=== PATIENT | female | born 1960 | race Caucasian/White ===

== ENCOUNTER 2022-10-25 13:11 | Outpatient (AMB) | payer OTHER, SELFPAY ==
--- NOTE | 2022-10-25 13:16 | A.OFFVIS_ITS ---
Intake Vital Signs 10/25/22 13:23 Height 5 ft 6 in Weight 183 lb 13.848 oz BMI 29.7 BP 130/74 Blood Pressure Location Rt brachial Position Sitting Pulse 71 Pulse Source Pulse Oximeter Pulse Oximetry (%) 98 Intake Visit Reasons: Inflammatory Arthritis Intake Note: New pt presents today for inflammatory arthritis consult. Residential Support Worker Required: No Accompanied by: Self / Same As Patient Allergies No Known Allergies Allergy (Verified 10/25/22 13:26) Medication List - Last Reconciled 10/25/22 by Janey Odonnell MD gabapentin 800 mg PO BEDTIME methotrexate sodium 10 mg PO QWEEK HPI HPI Comments History of Present Illness Details This is a 62-year-old female with a past medical history of psoriatic arthritis who presents as a new patient. Her previous sales agent financial report service left the practice. Patient states that she was diagnosed with psoriasis and psoriatic arthritis around 2012. She was evaluated by Dr. Liz. It usually affected her left knee. Occasionally the thumbs. Patient had been on methotrexate since diagnosis. She was initially taking 8 tabs a week but the dose was reduced to 4 tabs a week for years now. She does not remember taking any other DMARDs for psoriatic arthritis. She states that methotrexate has worked very well for the most part, she got intermittent flares where she had flare-ups affecting her left knee, she had her knee drained once. Today patient is complaining of intermittent pain in her right thumb, worse with use. She also has left lower back pain, worse with lying down, worse after sitting down for long periods of time. Does not shoot down her legs. Denies having any psoriasis rashes recently. She states that she had a colonoscopy years ago and it was unremarkable. Denies any history suggestive of uveitis. She has history of macular degeneration and gets injections in her eyes for the last 5 years. [facility] Medical History GERD (gastroesophageal reflux disease) Inflammatory polyarthropathy Lymphedema Myopic macular degeneration Psoriasis with arthropathy Surgical History History of endometrial biopsy Hx of cholecystectomy Hx of tubal ligation Family History Mother Rheumatoid arthritis Father No problems noted. Social History Household Members: Spouse Alcohol intake: current Alcohol intake frequency: holidays/special occasions only Patient Tobacco Use Status: Never used Tobacco Female Reproductive History Menstrual Total pregnancies: 3 Number of Living Children: 3 Review of Systems [facility] [place] Reports arthralgias and Reports stiffness Physical Exam Vital Signs: Last Vital Signs Pulse 71 10/25/22 13:23 BP 130/74 10/25/22 13:23 Pulse Ox 98 10/25/22 13:23 BMI result Body Mass Index 29.7 Const General: cooperative, healthy appearing and comfortable Nutritional Appearance: overweight Orientation/consciousness: patient oriented x3 Limitations: no limitations HEENT Head: Yes normocephalic and Yes atraumatic Mouth: moist mucous membranes Resp Effort & Inspection: normal respiratory effort and able to speak in complete sentences Auscultation: clear to auscultation bilaterally Cardio Rate: regular rate Rhythm: regular rhythm Skin General skin exam: no rashes or lesions noted Neuro General: patient oriented x3 Extrem Other: Squaring of right 1st CMC joint. Minimal discomfort of 1st CMC grind test Few Heberden's node right hand minimally tender Patient can not touch her toes with her knees straight without pain RLE lymphedema Left lower back tenderness to palpation When doing KOFFI test or the right lower extremity patient gets some left lower back pain. Equivocal test Assessment & Plan Assessment & Plan (1) Psoriasis with arthropathy: Comment: around 2012 MTX since 2012 effective Code(s): L40.50 - Arthropathic psoriasis, unspecified Plan: This is a 62-year-old female with a past medical history of psoriatic arthritis who presents as a new patient. Her previous sales agent financial report service left the practice. She is on methotrexate 10 mg weekly Patient is doing well today with no active synovitis. Recently she has been having left lower back pain, she has an equivocal KOFFI test. Will check SI joint x-ray to evaluate for sacroiliitis Continue methotrexate 10 mg weekly and folic acid 1 mg daily. Labs today Follow-up in 6 months or sooner if needed (2) Primary osteoarthritis, right hand: Code(s): M19.041 - Primary osteoarthritis, right hand Plan: Patient's right thumb achiness and stiffness is likely due to hand osteoarthritis. Advised patient to use [id number] Voltaren gel Plan I spent 46 minutes reviewing patient's chart, evaluating patient, ordering diagnostic workup, counseling patient and documenting in the chart Orders: Orders Comprehensive Met. Panel Today L40.50 - Arthropathic psoriasis, unspecified C Reactive Protein Today L40.50 - Arthropathic psoriasis, unspecified Complete Blood Count Auto Diff Today L40.50 - Arthropathic psoriasis, unspecified Erythrocyte Sedimentation Rate Today L40.50 - Arthropathic psoriasis, unspecified Hepatitis A,B,C Profile Today Z11.59 - Encounter for screening for other viral diseases T Spot TB Today Z11.7 - Encounter for testing for latent tuberculosis infection XR sacroiliac joint min 3V Today L40.50 - Arthropathic psoriasis, unspecified Medications: New methotrexate sodium 10 mg (4 x 2.5 mg) PO QWEEK 48 tabs 1RF folic acid 1 mg PO DAILY 90 tabs 1RF Coding Level of Care Code New Pt Level 4 (45536) Diagnoses Psoriasis with arthropathy L40.50 Primary osteoarthritis, right hand M19.041
[2022-10-25 13:23] VITALS: BP 130/74; PULSE 71; O2SAT 98; BMI 29.7
== END 2022-10-25 13:52 | disposition home or self-care (01) ==
PROVIDERS: PCP Family Medicine; Visit Provider Student in an Organized Health Care Education/Training Program
DX: L40.50 Arthropathic psoriasis, unspecified (principal); M19.041 Primary osteoarthritis, right hand
CPT/HCPCS: 99204

== ENCOUNTER → 2022-10-25 13:11 | Outpatient (BNVA) | payer SELFPAY | PROVIDERS: Visit Provider Student in an Organized Health Care Education/Training Program ==

== ENCOUNTER 2023-06-04 10:03 | Outpatient (AMB) | payer OTHER, SELFPAY ==
[2023-06-04 10:08] VITALS: BP 122/70; PULSE 84; O2SAT 98; BMI 30.1
--- NOTE | 2023-06-04 10:08 | A.OFFVIS_ITS ---
Intake Vital Signs 06/04/23 10:08 Height 5 ft 6 in Weight 186 lb 4.65 oz BMI 30.1 BP 122/70 Blood Pressure Location Rt brachial Position Sitting Pulse 84 Pulse Source Pulse Oximeter Pulse Oximetry (%) 98 Oxygen Delivery Method Room Air Intake Visit Reasons: PsA/LVM Intake Note: Patient last seen 10/25/22 presents today for follow up and test results. Pt did not complete labs, she has appt today [facility]. 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 She states that she is doing fairly well overall. Her main complaint is left thumb pain and stiffness. The symptoms are almost constant, worse with doing activ ities and when holding a book or an iPad. She has been using a thumb splint which seems to help. Rarely she would use Tylenol at night. She denies any swollen joints. Psoriasis has been well controlled. Feeling well overall Initial history: This is a 62-year-old female with a past medical history of psoriatic arthritis who presents as a new patient. 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 Patient states that she was diagnosed with psoriasis and psoriatic arthritis around 2012. She was evaluated by Dr. Liz. It usually affected her left knee. Occasionally the thumbs. Patient had been on methotrexate since diagnosis. She was initially taking 8 tabs a week but the dose was reduced to 4 tabs a week for years now. She does not remember taking any other DMARDs for psoriatic arthritis. She states that methotrexate has worked very well for the most part, she got intermittent flares where she had flare-ups affecting her left knee, she had her knee drained once. Today patient is complaining of intermittent pain in her right thumb, worse with use. She also has left lower back pain, worse with lying down, worse after sitting down for long periods of time. Does not shoot down her legs. Denies having any psoriasis rashes recently. She states that she had a colonoscopy years ago and it was unremarkable. Denies any history suggestive of uveitis. She has history of macular degeneration and gets injections in her eyes for the last 5 years. [facility] Medical History Lymphedema Psoriasis with arthropathy Myopic macular degeneration GERD (gastroesophageal reflux disease) Inflammatory polyarthropathy Surgical History Hx of cholecystectomy Hx of tubal ligation History of endometrial biopsy Family History Mother Rheumatoid arthritis Father No problems noted. Social History Household Members: Spouse Alcohol intake: current Alcohol intake frequency: holidays/special occasions only Patient Tobacco Use Status: Never used Tobacco Review of Systems [facility] [place] Reports arthralgias and Reports stiffness Skin/Breast Denies rash Physical Exam Vital Signs: Last Vital Signs Pulse 84 06/04/23 10:08 BP 122/70 06/04/23 10:08 Pulse Ox 98 06/04/23 10:08 Oxygen Delivery Method Room Air 06/04/23 10:08 BMI result Body Mass Index 30.1 Const General: cooperative, healthy appearing and comfortable Nutritional Appearance: overweight Orientation/consciousness: patient oriented x3 Limitations: no limitations HEENT Head: Yes normocephalic and Yes atraumatic Resp Effort & Inspection: normal respiratory effort and able to speak in complete sentences Skin General skin exam: no rashes or lesions noted Neuro General: patient oriented x3 Extrem Other: Squaring of right 1st CMC joint. No tenderness, negative Yasir's test on the left Few Heberden's node right hand Left 1st CMC joint tenderness Negative Yasir's test No active synovitis No nail pitting Results Reviewed Results Reviewed: Bilateral SI joint x-rays 11/2022? Findings:? No fracture of the sacrum or coccyx is evident.? The sacroiliac joints are unremarkable.?? No other bony or soft tissue abnormalities are seen.?? Impression:? No evidence of sacroiliitis? Bilateral wrist x-rays 11/2022? Findings Right:? No fracture or subluxation.? There is mild periarticular osteopenia.? There is mild degenerative change in the right scaphotrapezial joint Left no fracture or subluxation.? There is mild periarticular osteopenia.? There are mild degenerative changes 1st CMC and scaphotrapezial joint.? No erosions? Impression mild periarticular osteopenia.? Mild DJD? Bilateral hand x-rays 11/2022? Findings Right no fracture or subluxation.? There are small erosions right 1st metacarpal head.? There are degenerative changes of the distal interphalangeal joints of the right 2nd digit and to a lesser extent the remaining distal interphalangeal joints.? There is mild narrowing of the right scaphotrapezial joint.? There is mild periarticular osteopenia? The soft tissues are unremarkable? Left:? No fracture or subluxation.? Mild degenerative change at 1st carpometacarpal joint and scaphotrapezial joints.? Mild degenerative changes are seen in the distal interphalangeal joints.? No erosion.? There is mild periarticular osteopenia.?? The soft tissues are unremarkable.?? Impression:? Mild periarticular osteopenia.? Small erosions right 1st metacarpal head.? Mild degenerative changes interphalangeal joints.? Mild narrowing of the scaphotrapezial joints and left carpometacarpal joint Assessment & Plan Assessment & Plan (1) Psoriasis with arthropathy: Comment: around 2012 MTX since 2012 effective Code(s): L40.50 - Arthropathic psoriasis, unspecified Plan: This is a 62-year-old female with psoriatic arthritis who presents for follow- up. Doing well overall on methotrexate 10 mg weekly plus folic acid 1 mg daily. No active synovitis on exam Patient's symptoms are likely due to degenerative arthritis Continue current meds as prescribed Labs before next visit in 6 months (2) Osteoarthritis of hands, bilateral: Code(s): M19.041 - Primary osteoarthritis, right hand; M19.042 - Primary osteoarthritis, left hand Qualifiers: Osteoarthritis type: primary Qualified Code(s): M19.041 - Primary osteoarthritis, right hand; M19.042 - Primary osteoarthritis, left hand Plan: Most bothersome today is the left 1st carpometacarpal joint. Discussed management of hand osteoarthritis including using thumb splints, Voltaren gel, can use Tylenol. Can use systemic NSAIDs sparingly. Referred patient to occupational therapy. Advised patient that a steroid injection by hand surgeon can also be helpful. 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 Panel 6 Months Z79.631 - ferry terminal supervisor (current) use of antimetabolite agent Erythrocyte Sedimentation Rate 6 Months Z79.631 - nursing home (current) use of antimetabolite agent C Reactive Protein 6 Months Z79.631 - nursing home (current) use of antimetabolite agent Coding Level of Care Code Est Pt Level 4 (22877) Diagnoses Psoriasis with arthropathy L40.50 Primary osteoarthritis of both hands M19.041; M19.042 Osteoarthritis type: primary
== END 2023-06-04 10:25 | disposition home or self-care (01) ==
PROVIDERS: PCP Family Medicine; Visit Provider Student in an Organized Health Care Education/Training Program
DX: L40.50 Arthropathic psoriasis, unspecified (principal); M19.041 Primary osteoarthritis, right hand; M19.042 Primary osteoarthritis, left hand
CPT/HCPCS: 99214

== ENCOUNTER → 2023-06-04 10:03 | Outpatient (BNVA) | payer OTHER, SELFPAY | PROVIDERS: PCP Family Medicine; Visit Provider Student in an Organized Health Care Education/Training Program ==

== ENCOUNTER 2023-12-05 09:53 | Outpatient (AMB) | payer OTHER, SELFPAY ==
--- NOTE | 2023-12-05 09:54 | MHC.OFFVIS ---
Vital Signs 12/05/23 09:57 Height 5 ft 6 in Weight 175 lb 11.335 oz BMI 28.4 BP 120/72 Blood Pressure Location Rt brachial Position Sitting Pulse 84 Pulse Source Pulse Oximeter Pulse Oximetry (%) 99 Oxygen Delivery Method Room Air Intake Visit Reasons: PsA Intake Note: Patient presents for PsA. Allergies No Known Allergies Allergy (Verified 12/05/23 09:56) Medication List - Last Reconciled 12/05/23 by Janey Odonnell MD folic acid 1 mg PO DAILY gabapentin 800 mg PO BEDTIME methotrexate sodium 10 mg (4 x 2.5 mg) PO QWEEK HPI Comments Details: 63-year-old female with psoriatic arthritis returns for follow-up. She states that she has been having triggering of her right ring finger for the last 2 weeks or so. It happens multiple times a day. No significant pain or swelling. She has also noticed some left knee pain. This started approximately 3 weeks ago. She attributes it to a stretching program that she has been doing. She has been doing relatively well overall otherwise. Initial history: This is a 62-year-old female with a past medical history of psoriatic arthritis who presents as a new patient. Her previous hospice/home health aide left the practice. Patient states that she was diagnosed with psoriasis and psoriatic arthritis around 2012. She was evaluated by Dr. Liz. It usually affected her left knee. Occasionally the thumbs. Patient had been on methotrexate since diagnosis. She was initially taking 8 tabs a week but the dose was reduced to 4 tabs a week for years now. She does not remember taking any other DMARDs for psoriatic arthritis. She states that methotrexate has worked very well for the most part, she got intermittent flares where she had flare-ups affecting her left knee, she had her knee drained once. Today patient is complaining of intermittent pain in her right thumb, worse with use. She also has left lower back pain, worse with lying down, worse after sitting down for long periods of time. Does not shoot down her legs. Denies having any psoriasis rashes recently. She states that she had a colonoscopy years ago and it was unremarkable. Denies any history suggestive of uveitis. She has history of macular degeneration and gets injections in her eyes for the last 5 years. [facility] Medical History Lymphedema Psoriasis with arthropathy Myopic macular degeneration GERD (gastroesophageal reflux disease) Inflammatory polyarthropathy Surgical History Hx of cholecystectomy Hx of tubal ligation History of endometrial biopsy Family History Mother Rheumatoid arthritis Father No problems noted. Social History Household Members: Spouse Alcohol intake: current Alcohol intake frequency: holidays/special occasions only Patient Tobacco Use Status: Never used Tobacco Female Reproductive History Menstrual Total pregnancies: 3 Number of Living Children: 3 Review of Systems [facility] Reports arthralgias and Reports stiffness Skin/Breast Denies rash Physical Exam Vital Signs: Last Vital Signs Pulse 84 12/05/23 09:57 BP 120/72 12/05/23 09:57 Pulse Ox 99 12/05/23 09:57 Oxygen Delivery Method Room Air 12/05/23 09:57 BMI result Body Mass Index 28.4 Const General: cooperative, healthy appearing and comfortable Nutritional Appearance: overweight Orientation/consciousness: patient oriented x3 Limitations: no limitations HEENT Head: Yes normocephalic and Yes atraumatic Resp Effort & Inspection: normal respiratory effort and able to speak in complete sentences Skin General skin exam: no rashes or lesions noted Neuro General: patient oriented x3 Extrem Other: Squaring of right 1st CMC joint. No tenderness, negative Yasir's test on the right Few Heberden's node right hand Negative Yasir's test on the left No active synovitis Right 4th flexor tendon tenderness and right 5th finger triggering Some tenderness at the inferior medial aspect of left knee anteriorly. No swelling, no knee pain with full flexion-extension Right leg lymphedema No nail pitting Results Reviewed Results Reviewed: Bilateral SI joint x-rays 11/2022? Findings:? No fracture of the sacrum or coccyx is evident.? The sacroiliac joints are unremarkable.?? No other bony or soft tissue abnormalities are seen.?? Impression:? No evidence of sacroiliitis? Bilateral wrist x-rays 11/2022? Findings Right:? No fracture or subluxation.? There is mild periarticular osteopenia.? There is mild degenerative change in the right scaphotrapezial joint Left no fracture or subluxation.? There is mild periarticular osteopenia.? There are mild degenerative changes 1st CMC and scaphotrapezial joint.? No erosions? Impression mild periarticular osteopenia.? Mild DJD? Bilateral hand x-rays 11/2022? Findings Right no fracture or subluxation.? There are small erosions right 1st metacarpal head.? There are degenerative changes of the distal interphalangeal joints of the right 2nd digit and to a lesser extent the remaining distal interphalangeal joints.? There is mild narrowing of the right scaphotrapezial joint.? There is mild periarticular osteopenia? The soft tissues are unremarkable? Left:? No fracture or subluxation.? Mild degenerative change at 1st carpometacarpal joint and scaphotrapezial joints.? Mild degenerative changes are seen in the distal interphalangeal joints.? No erosion.? There is mild periarticular osteopenia.?? The soft tissues are unremarkable.?? Impression:? Mild periarticular osteopenia.? Small erosions right 1st metacarpal head.? Mild degenerative changes interphalangeal joints.? Mild narrowing of the scaphotrapezial joints and left carpometacarpal joint Assessment & Plan Assessment & Plan (1) Psoriasis with arthropathy: Comment: around 2012 MTX since 2012 effective Code(s): L40.50 - Arthropathic psoriasis, unspecified Category: Medical Plan: This is a 63-year-old female with psoriatic arthritis who presents for follow-up. Doing well overall on methotrexate 10 mg weekly plus folic acid 1 mg daily. No active synovitis on exam Continue current meds as prescribed Labs before next visit in 6 months (2) Elevated serum creatinine: Code(s): R79.89 - Other specified abnormal findings of blood chemistry Category: Medical Plan: Mild bump in serum creatinine. Advised patient to repeat blood work in one-month (3) Trigger finger, right ring finger: Code(s): M65.341 - Trigger finger, right ring finger Category: Medical Plan: Discussed the nature of trigger finger. Discussed conservative options, such as wearing a Band-Aid on the PIP at night, consider wearing OTC ring splints. Or referral to OT for a custom ring splint. No improvement in a few weeks, advised patient to call the office and we can bring her in for an injection (4) Immunization counseling: Code(s): Z71.85 - Encounter for immunization safety counseling Category: Medical Plan: Advised patient to get both flu vaccine and COVID booster. 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 Panel 6 Months L40.50 - Arthropathic psoriasis, unspecified, Z79.631 - terminal operations manager (current) use of antimetabolite agent C Reactive Protein 6 Months L40.50 - Arthropathic psoriasis, unspecified, Z79.631 - [facility] (current) use of antimetabolite agent Comprehensive Met. 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
[2023-12-05 09:57] VITALS: BP 120/72; PULSE 84; O2SAT 99; BMI 28.4
== END 2023-12-05 10:23 | disposition home or self-care (01) ==
PROVIDERS: PCP Family Medicine; Visit Provider Student in an Organized Health Care Education/Training Program
DX: L40.50 Arthropathic psoriasis, unspecified (principal); R79.89 Other specified abnormal findings of blood chemistry; M65.341 Trigger finger, right ring finger; Z71.85 Encounter for immunization safety counseling
CPT/HCPCS: 99214; G2211

== ENCOUNTER → 2023-12-05 09:53 | Outpatient (BNVA) | payer OTHER, SELFPAY | PROVIDERS: PCP Family Medicine; Visit Provider Student in an Organized Health Care Education/Training Program ==

== ENCOUNTER 2024-11-03 12:18 | Outpatient (AMB) | payer OTHER, SELFPAY ==
--- NOTE | 2024-11-03 12:20 | MHC.OFFVIS ---
Vital Signs 11/03/24 12:33 Height 5 ft 6 in Weight 185 lb 13.595 oz BMI 30.0 BP 120/64 Blood Pressure Location Lt brachial Position Sitting Pulse 75 Pulse Source Pulse Oximeter Pulse Oximetry (%) 98 Oxygen Delivery Method Room Air Intake Visit Reasons: PsA Intake Note: Patient presents for follow up on psoriasis with arthropathy and lab results. She was last seen 12/05/[address] Odonnell Allergies No Known Allergies Allergy (Verified 11/03/24 12:36) Medication List - Last Reconciled 11/03/24 by Paige Ram MD folic acid 1 mg PO DAILY gabapentin 800 mg PO BEDTIME methotrexate sodium 10 mg (4 x 2.5 mg) PO QWEEK HPI Comments Details: Patient is a 64 y.o female with polyarticular OA (hand and knee OA) and PsO c/b PsA here today for follow up Interval History: Patient last seen 12/05/[address] Odonnell - On Methotrexate 10mg weekly and folic acid - c/o of right ring finger triggering - Recommended splinting - No active disease, no changes to medicatons Today - On Methotrexate 10mg weekly and folic acid - Splinting improved her trigger finger - Has been having knee pain and right leg pain (has known lymphadedema on the right) - Went to PT - Improved leg pain now with all the conservative measures including a right knee 10/2024 - Left ankle pain, currently following up with ortho for this as well - Has stiffness in her right 3rd and 4th PIP lasting an hour - No PsO Rheumatologic History: Around 2012 MTX since 2012 effective Initial history: This is a 62-year-old female with a past medical history of psoriatic arthritis who presents as a new patient. Her previous machine helper left the practice. Patient states that she was diagnosed with psoriasis and psoriatic arthritis around 2012. She was evaluated by Dr. Liz. It usually affected her left knee. Occasionally the thumbs. Patient had been on methotrexate since diagnosis. She was initially taking 8 tabs a week but the dose was reduced to 4 tabs a week for years now. She does not remember taking any other DMARDs for psoriatic arthritis. She states that methotrexate has worked very well for the most part, she got intermittent flares where she had flare-ups affecting her left knee, she had her knee drained once. Today patient is complaining of intermittent pain in her right thumb, worse with use. She also has left lower back pain, worse with lying down, worse after sitting down for long periods of time. Does not shoot down her legs. Denies having any psoriasis rashes recently. She states that she had a colonoscopy years ago and it was unremarkable. Denies any history suggestive of uveitis. She has history of macular degeneration and gets injections in her eyes for the last 5 years. Current Rheumatology Medication(s): Methotrexate 10mg weekly Folic acid 1mg daily PFS Medical History Lymphedema Psoriasis with arthropathy Myopic macular degeneration GERD (gastroesophageal reflux disease) Inflammatory polyarthropathy Surgical History Hx of cholecystectomy Hx of tubal ligation History of endometrial biopsy Family History Mother Rheumatoid arthritis Father No problems noted. Social History Household Members: Spouse Alcohol intake: current Alcohol intake frequency: holidays/special occasions only Patient Tobacco Use Status: Never used Tobacco Review of Systems Const Details: Review of Systems Constitutional: Denies fever, chills, weight loss ENT: Denies vision changes, eye pain or eye redness, dental caries, dry mouth GI: Denies nausea, vomiting, diarrhea, abdominal pain, change in BM Pulm: Denies SOB, COBB, hemoptysis, wheezing Cards: Denies chest pain, palpitations Skin: Denies Raynaud's, rash, nail changes, photosensitivity, STUDIO OPERATION ENGINEER: Denies headaches, weakness, paresthesias, recurrent falls MSK: as per HPI All other systems reviewed and are unremarkable except noted above Physical Exam Exam Exam: Vital signs reviewed Physical Examination CONSTITUITIONAL Patient alert and cooperative. Well appearing and in no apparent painful distress MSK Hands Right Hand: Able to make a fist. No swelling but mild TTP of the right 3rd PIP. No swelling or tenderness to palpation of the other MCPs, PIPs or DIPs. Squarring of the 1st CMC joint Left Hand: Able to make a fist. No swelling or tenderness to palpation of the MCPs, PIPs or DIPs. Herbedens nodes noted bilaterally Wrists Right Wrist: Full ROM to flexion and extension. No swelling or TTP Left Wrist: Full ROM to flexion and extension. No swelling or TTP Elbows Right Elbow: Full ROM. No swelling or TTP. No TTP of the medial epicondyle. No TTP of the lateral epicondyle Left Elbow: Full ROM. No swelling or TTP. No TTP of the medial epicondyle. No TTP of the lateral epicondyle Shoulders Right shoulder: Full ROM. No swelling noted. No TTP of the AC joint. No TTP of the subacromial bursa. No TTP of the posterior shoulder Left shoulder: Full ROM. No swelling noted. No TTP of the AC joint. No TTP of the subacromial bursa. No TTP of the posterior shoulder Lower extemity Right lower extremity with compression stocking. Not able to full assess swelling Knees Right knee: No TTP of the knee joint line. No TTP of pes anserine bursa Left knee: No swelling noted. No TTP of the knee joint line. No TTP of pes anserine bursa. Ankles Right ankle: Good ankle dorsiflexion and plantar flexion. unable to assess swelling due to compression stocking. No TTP of the ankle joint Left ankle: Good ankle dorsiflexion and plantar flexion. Mild pitting edema. No TTP of the ankle joint. Patient pointed to area inferior to the medial epicondyle as the source of the pain but no swelling noted or TTP of the area Feet Right foot: Negative squeeze test Left foot: Negative squeeze test Tender points? No tenderness to palpation of the bilateral trapezius, supraspinatus, anterior costochondral junctions, bilateral suboccipital muscle insertions SKIN No rashes Results Reviewed Results Reviewed: 10/30/24 VMG WBC 5.98 Hb 14.3 Plt 233 BUN 19 Cr 1.1 eGFR 56 AST 19 ALT 36 ESR 4 CRP 6.9 Assessment & Plan Assessment & Plan (1) Psoriasis with arthropathy: Comment: around 2012 MTX since 2012 effective Code(s): L40.50 - Arthropathic psoriasis, unspecified Category: Medical Plan: #PsO/PsA Patient is a 64-year-old female with psoriasis complicated by psoriatic arthritis here today for follow up Overall I do not see any signs of active psoriatic arthritis however she is complaining of tenderness to palpation of the right 3rd PIP and prolonged morning stiffness of the right 3rd and 4th PIP. This could be some mild psoriatic arthritic activity. We will try increasing her methotrexate dose to see if this helps with this Plan - Increase Mtx to 15mg wekly - Continue folic acid 1 mg daily - Check CMP in 3 months - RTC 6 months - Labs before visit: CBC, CMP, ESR, CRP (2) Left ankle pain: Code(s): M25.572 - Pain in left ankle and joints of left foot Qualifiers: Chronicity: chronic Qualified Code(s): M25.572 - Pain in left ankle and joints of left foot; G89.29 - Other chronic pain Plan: #Left ankle pain Patient complaining of the left medial ankle pain. 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 Limit alcohol and avoid Bactrim ? Monitoring: CBC, BMP, LFTs every 3-4 months and hepatitis serologies as needed Plan I spent 30 minutes reviewing the record and labs, taking a history, examining the patient, discussing the treatment plan, ordering diagnostic work up and documenting in the medical record Orders: Orders Complete Blood Count Auto Diff 6 Months Z79.899 - Other [facility] (current) drug therapy Comprehensive Met. Panel 6 Months Z79.899 - Other adjunct faculty for medical terminology (current) drug therapy C Reactive Protein 6 Months Z79.899 - Other [facility] (current) drug therapy Comprehensive Met. Panel 3 Months Z79.899 - Other [facility] (current) drug therapy Erythrocyte Sedimentation Rate 6 Months Z79.899 - Other adjunct faculty for medical terminology (current) drug therapy Medications: New diclofenac sodium 1% apply to left ankle 4 grams topical QID 150 grams 5RF M19.072 - Primary osteoarthritis, left ankle and foot Changed From methotrexate sodium 10 mg (4 x 2.5 mg) PO QWEEK 48 tabs 3RF L40.50 - Arthropathic psoriasis, unspecified To methotrexate sodium 15 mg (6 x 2.5 mg) PO QWEEK 78 tabs 1RF 90 days L40.50 - Arthropathic psoriasis, unspecified Refilled folic acid 1 mg PO DAILY 90 tabs 1RF Coding Level of Care Code Est Pt Level 4 (20111) Complex EM visit Add On G2211 Diagnoses Psoriasis with arthropathy L40.50 Chronic pain of left ankle M25.572; G89.29 Chronicity: chronic 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
[2024-11-03 12:33] VITALS: BP 120/64; PULSE 75; O2SAT 98
--- OUTSIDE RECORDS SUMMARY | 2024-11-03 13:30 | XMS_ITS | Clinical Summary ---
Author Organization [facility] Address [address] [place] [address] [place] [phone] Phone Care Team Providers Care Manager Pool Name Role Phone Med Kuo NP Primary Care Provider [phone] Allergies No known active allergies Medications methotrexate 2.5 MG Oral tablet Take by mouth every 7 days. Active gabapentin (NEURONTIN) 800 MG tablet Take 800 mg by mouth 3 (three) times a day. Active predniSONE (DELTASONE) 5 MG tablet Take 5 mg by mouth daily with breakfast. Active Encounters Date Type Department Care Team Description 10/13/2024 3:45 PM EDT Office Visit [facility] [address] [place] [address] Med Kuo NP McKeon, Terrance, PT Lymphedema (Primary Dx) 09/21/2024 3:45 PM EDT Office Visit [facility] [address] [place] [address] Med Kuo NP McKeon, Terrance, PT Lymphedema (Primary Dx) 09/14/2024 3:45 PM EDT Office Visit [facility] [address] [place] [address] Med Kuo NP McKeon, Terrance, PT Lymphedema (Primary Dx) 09/10/2024 3:45 PM EDT Office Visit [facility] [address] [place] [address] Med Kuo NP McKeon, Wili, PT Lymphedema (Primary Dx) 09/08/2024 3:45 PM EDT Office Visit [facility] [address] [place] [address] Med Kuo, DEVEN Gomez, Wili, PT Lymphedema (Primary Dx) 09/02/2024 3:45 PM EDT Office Visit [facility] [address] [place] [address] Med Kuo NP McKeon, Terrance, PT Lymphedema (Primary Dx) 08/27/2024 3:45 PM EDT Office Visit [facility] [address] [place] [address] Med Kuo, DEVEN Gomez, Wili, PT Lymphedema (Primary Dx) 08/24/2024 3:45 PM EDT Office Visit [facility] [address] [place] [address] Med Kuo, DEVEN Gomez, Wili, PT Lymphedema (Primary Dx) from Last 3 Months Social History Tobacco Use Types Packs/Day Years Used Date Smoking Tobacco: Never Smokeless Tobacco: Never Education Answer Date Recorded Are you interested in more education? Not on crystal e 06/29/2022 Are you concerned about learning? Not on file 06/29/2022 No 06/29/2022 No 06/29/2022 Digital Access Answer Date Recorded No 07/30/2022 No 07/30/2022 No 07/30/2022 Reliable internet access at home? Not on file 07/30/2022 Device with a working camera? Not on file Comments Unknown Sex and Gender Information Value Date Recorded Sex Assigned at Not on file Legal Sex Female 9:45 PM EDT Gender Identity Not on file Sexual Orientation Not on file Last Filed Vital Signs Vital Sign Reading Time Taken Comments Blood Pressure - - Pulse - - Temperature - - Respiratory Rate - - Oxygen Saturation - - Inhaled Oxygen Concentration - - Weight 82.9 kg (182 lb 11.2 oz) 04/29/2020 8:53 AM EST Height 167.6 cm (5' 6 ) 04/29/2020 8:53 AM EST Body Mass Index 29.49 04/29/2020 8:53 AM EST Plan of Treatment Health Maintenance Due Date Last Done Comments DEPRESSION SCREENING 1973 HEPATITIS C SCREENING 10/11/1979 HIV ONE-TIME SCREENING (18-65 YEARS) 10/11/1979 PNEUMOCOCCAL VACCINES (50+ years) (1 of 2 - PCV) 1980 ZOSTER VACCINES (1 of 2) 1980 PAP SMEAR 1982 SMOKING STATUS SCREENING (Once After 26 Yrs) 10/11/1987 MAMMOGRAM 2001 COLOGUARD 2006 COLONOSCOPY 2006 COLORECTAL CANCER SCREENING 2006 FIT TEST 2006 FOBT 2006 SIGMOIDOSCOPY 2006 VIRTUAL COLONOSCOPY 2006 COVID-19 VACCINE (2 - Moderna risk series) 01/31/2021 01/03/2021 RSV VACCINE (1 - Risk 60-74 years 1-dose series) 2021 Adult Td,Tdap Booster 03/27/2022 03/27/2012, 005 INFLUENZA VACCINE (#1) 2024 , 12/23/2019, 12/23/2019, Additional history exists LIPID PANEL 07/12/2026 07/12/2021, 05/15/2004 HEPATITIS A VACCINES Aged Out 03/27/2012, 03/01/20 11 No longer eligible based on patient's age to complete this topic HIB VACCINES Aged Out No longer eligi ble based on patient's age to complete this topic MENINGOCOCCAL VACCINES (ACWY) Aged Out No longer eligible based on patient's age to complete this topic MENINGOCOCCAL VACCINES (B) Aged Out N o longer eligible based on patient's age to complete this topic Medical Devices Not on file Insurance [facility] Care Teams Manager Pool Relationship Specialty Start Date End Date Med Kuo NP [address] [place] [id number] PCP - General Nurse Practitioner 06/25/24 Additional Source Comments The information contained in this document represents components of the legal health record. It is not the complete legal health record.[facility]
--- OUTSIDE RECORDS SUMMARY | 2024-11-03 13:30 | XMS_ITS | Encounter Summary ---
Author Organization [facility] Address [address] [place] [address] [place] [phone] Phone Care Team Providers Care Vp Organizational Development Name Role Phone Alisson Curry NP Primary Care Provide r Med Kuo NP Primary Care Provider [phone] Reason for Referral * Physical Therapy (Routine) - New Request Specialty Diagnoses / Procedures Referred By Rey desai Referred To Contact Physical Therapy Diagnoses Encounter for rehabilitation Med Kuo NP [address] [place] [address] Phone: tel: fax: [address] [address] Phone: tel: Referral ID Status Reason Start Date Expiration Date V isits Requested Visits Authorized [id number] New Request 02/06/2024 02/05/2025 1 1 Encounter Details Date Type Department Care Team (Latest Contact Info) Description 02/06/2024 Transcribe Orders [facility] [address] [place] [address] Med Kuo NP [address] [place] [address] Encounter for rehabilitation (Primary Dx) Social History Tobacco Use Types Packs/Day Years [...] on file Sexual Orientation Not on file documented as of this encounter Plan of Treatment Scheduled Referrals Name Type Priority Associated Diagnoses Orde r Schedule Ambulatory referral to [facility] Physical Therapy Outpatient Referral Routine Encounter for rehabilitation Ordered: 02/06/2024 documented as of this encounter Visit Diagnoses Diagnosis Encounter for rehabilitation- Primary documented in this encounter Care Teams Vp Organizational Development Relationship Specialty Start Date End Date Alisson Curry NP [address] [place] [phone] PCP - General Family Medicine 12/29/18 06/24/24 Med Kuo NP [address] [place] [phone] PCP - General Nurse Practitioner 06/25/24 documented as of this encounter Additional Source Comments The information contained in this document represents components of the legal health record. It is not the complete legal health record.[facility]
== END 2024-11-03 13:18 | disposition home or self-care (01) ==
LOC: HO.RHES 12:19
PROVIDERS: PCP Family Medicine; Visit Provider Student in an Organized Health Care Education/Training Program
DX: L40.50 Arthropathic psoriasis, unspecified (principal); M25.572 Pain in left ankle and joints of left foot; G89.29 Other chronic pain; Z79.631 Long term (current) use of antimetabolite agent
CPT/HCPCS: 99214; G2211